=== PATIENT | male | born 1985 | race Caucasian/White ===

== ENCOUNTER 2019-04-04 04:34 | Emergency (ER) | payer OTHER ==
[2019-04-04 04:41] VITALS: RESP 18
[2019-04-04] MEDS ORDERED: MAG HYDROX/AL HYDROX/SIMETH 30 ML, HYOSCYAMINE ELIXIR 10 ML, LIDOCAINE VISCOUS 2% 10 ML PO STA ×3 (04:59)
[2019-04-04] MEDS ORDERED: ONDANSETRON 4 MG/2 ML VIAL IVP STA (04:59)
--- NOTE | 2019-04-04 04:59 | ED ---
Abdominal Pain HPI - General Chief Complaint: Abdominal Pain Stated Complaint: Abd pain Time Seen by Provider: 04/04/19 04:45 Source: patient Mode of arrival: ambulatory Limitations: no limitations - History of Present Illness Initial Comments: Arun is a 33 yo male who since the emergency room today for evaluation of epigastric right upper quadrant abdominal pain. Patient reports that presently for 5 times her past month he developed some what he considered to be indigestion type pain after eating, patient thought it may be related to eating dairy though he has no previous ALLERGY. Patient proceeded dinner around 7 PM he went to bed and awoke around midnight with stabbing epigastric right upper quadrant abdominal pain with associated nausea. Patient reports he's had 5 episodes of nonbloody nonbilious emesis which prompted him to come the ER for further evaluation. Patient does have a history of hepatitis C comings previously undergone therapy for this as a child, he has not followed up with gastroenterology or infectious disease over a year. - Related Data Home Medications Medication Instructions Recorded Confirmed Mononine 1,500 units IV DIRECTED PRN 02/07/15 02/07/15 Allergies Allergy/AdvReac Type Severity Reaction Status Date / Time aspirin AdvReac Unknown Verified 04/04/19 04:41 Review of Systems ROS Statement: Those systems with pertinent positive or pertinent negative responses have been documented in the HPI. ROS Other: All systems not noted in ROS Statement are negative. 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 Patient is nontoxic and well- hydrated and is in no distress. HENT: Normocephalic, Atraumatic. EYES: PERRL, EOMI PULMONARY: Unlabored respirations. No audible rales rhonchi or wheezing was noted. CARDIOVASCULAR: There is a regular rate and rhythm without any murmurs gallops or rubs. ABDOMEN: Mild tenderness to deep palpation in the epigastrium SKIN: Skin is clear with no lesions or rashes and otherwise unremarkable. : Deferred NEUROLOGIC: Patient is alert and oriented x3. Moving all extremities spontaneously MUSCULOSKELETAL: Normal extremities with adequate strength and full range of motion. No lower extremity swelling or edema. No calf tenderness. PSYCHIATRIC: Normal psychiatric evaluation. Limitations: no limitations Course Vital Signs 04/04/19 04:39 Temperature 97.4 F L Pulse Rate 74 Respiratory 18 Rate Blood Pressure 135/78 O2 Sat by Pulse 96 Oximetry Medical Decision Making - Medical Decision Making Patient was seen and evaluated, history obtained from patient Labs and KUB xray ordered KUB with possible enteritis, no acute findings Labs with transaminitis - US ordered, however patient is now asymptomatic resting comfortably and would prefer to be discharged home at this time. This with the patient he needs follow-up with his primary care physician, that if he starts noticing abdominal discomfort after eating fatty foods he needs to avoid them and follow-up with a surgeon for evaluation of possible gallbladder dysfunction. All questions pertaining care were answered return parameters were discussed the patient was discharged home in stable condition - Lab Data Result diagrams: 04/04/19 05:10 04/04/19 05:10 Lab Results 04/04/19 04/04/19 04/04/19 Range/Units 05:10 05:10 05:30 WBC 5.9 (3.8-10.6) k/uL RBC 4.80 (4.30-5.90) m/uL Hgb 16.3 (13.0-17.5) gm/dL Hct 45.2 (39.0-53.0) % MCV 94.2 (80.0-100.0) fL MCH 33.9 (25.0-35.0) pg MCHC 35.9 (31.0-37.0) g/dL RDW 12.9 (11.5-15.5) % Plt Count 109 L (150-450) k/uL Neutrophils % 67 % Lymphocytes % 22 % Monocytes % 6 % Eosinophils % 2 % Basophils % 1 % Neutrophils # 4.0 (1.3-7.7) k/uL Lymphocytes # 1.3 (1.0-4.8) k/uL Monocytes # 0.4 (0-1.0) k/uL Eosinophils # 0.1 (0-0.7) k/uL Basophils # 0.1 (0-0.2) k/uL Sodium 140 (137-145) mmol/L Potassium 3.6 (3.5-5.1) mmol/L Chloride 107 (98-107) mmol/L Carbon Dioxide 24 (22-30) mmol/L Anion Gap 9 mmol/L BUN 14 (9-20) mg/dL Creatinine 0.71 (0.66-1.25) mg/dL Est GFR (CKD-EPI)AfAm >90 (>60 ml/min/1.73 sqM) Est GFR (CKD-EPI)NonAf >90 (>60 ml/min/1.73 sqM) Glucose 118 H (74-99) mg/dL Calcium 9.4 (8.4-10.2) mg/dL Total Bilirubin 1.0 (0.2-1.3) mg/dL AST 96 H (17-59) U/L ALT 90 H (21-72) U/L Alkaline Phosphatase 176 H (38-126) U/L Total Protein 8.0 (6.3-8.2) g/dL Albumin 4.1 (3.5-5.0) g/dL Lipase 112 (23-300) U/L Urine Color Yellow Urine Appearance Clear (Clear) Urine pH 7.0 (5.0-8.0) Ur Specific [place] 1.020 (1.001-1.035) Urine Protein Trace H (Negative) Urine Glucose (UA) Negative (Negative) Urine Ketones Negative (Negative) Urine Blood Small H (Negative) Urine Nitrite Negative (Negative) Urine Bilirubin Negative (Negative) Urine Urobilinogen 2.0 (<2.0) mg/dL Ur Leukocyte Esterase Negative (Negative) Urine RBC 36 H (0-5) /hpf Urine WBC 3 (0-5) /hpf Calcium Oxalate Crystal Occasional H (None) /hpf Urine Bacteria Rare H (None) /hpf Urine Mucus Rare H (None) /hpf Disposition Clinical Impression: Abdominal pain Disposition: HOME SELF-CARE Condition: Stable Instructions (If sedation given, give patient instructions): Abdominal Pain (ED) Is patient prescribed a controlled substance at d/c from ED?: No Referrals: None,Stated [Primary Care Provider] - 1-2 days
--- NOTE | 2019-04-04 05:46 | XR ---
EXAM: XR Abdomen, 2 Views CLINICAL HISTORY: abdominal pain TECHNIQUE: Frontal upright views of the abdomen/pelvis. COMPARISON: No relevant prior studies available. FINDINGS: Lower thorax: There is a 0.8 cm nodule overlying the left lower lung zone. While this may represent a nipple shadow, it is asymmetric. Gastrointestinal tract: Wall thickening of small bowel loops likely present raising concern for infectious versus inflammatory enteritis. No dilation. Organs: Bilateral subcentimeter nephrolithiasis. 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 IMPRESSION: 1. A 0.8 cm nodule overlying the left lower lung zone. While this may represent a nipple shadow, it is asymmetric. PA and lateral views of the chest recommended for further evaluation. 2. Wall thickening of small bowel loops likely present raising concern for infectious versus inflammatory enteritis. 3. Bilateral subcentimeter nephrolithiasis. Renal stone protocol CT may be obtained for further evaluation, if clinically indicated.
[2019-04-04 05:50] LABS: Basophils # (A) 0.1 k/uL (0-0.2); Basophils % (A) 1 %; Eosinophils # (A) 0.1 k/uL (0-0.7); Eosinophils % (A) 2 %; HCT 45.2 % (39.0-53.0); HGB 16.3 gm/dL (13.0-17.5); Lymphocytes # (A) 1.3 k/uL (1.0-4.8); Lymphocytes % (A) 22 %; MCH 33.9 pg (25.0-35.0); MCHC 35.9 g/dL (31.0-37.0); MCV 94.2 fL (80.0-100.0); Monocytes # (A) 0.4 k/uL (0-1.0); Monocytes % (A) 6 %; Neutrophils % (A) 67 %; Platelet Count 109 k/uL (150-450); RDW 12.9 % (11.5-15.5); WBC 5.9 k/uL (3.8-10.6)
[2019-04-04 06:04] LABS: ALT 90 U/L (21-72); AST 96 U/L (17-59); African American GFR (CKD) >90 (>60 ml/min/1.73 sqM); Albumin 4.1 g/dL (3.5-5.0); Alkaline Phosphatase 176 U/L (38-126); Anion Gap 9 mmol/L; Blood Urea Nitrogen 14 mg/dL (9-20); Calcium 9.4 mg/dL (8.4-10.2); Carbon Dioxide 24 mmol/L (22-30); Chloride 107 mmol/L (98-107); Glucose 118 mg/dL (74-99); Non-African American GFR(CKD) >90 (>60 ml/min/1.73 sqM); Potassium 3.6 mmol/L (3.5-5.1); Sodium 140 mmol/L (137-145)
[2019-04-04 06:15] LABS: Appearance,Urine Clear (Clear); Bacteria,Urine Rare /hpf; Bilirubin,Urine Negative (Negative); Blood,Urine Small (Negative); Calcium Oxalate Crystals,Urine Occasional /hpf; Color,Urine Yellow; Glucose,Urine (UA) Negative (Negative); Ketones,Urine Negative (Negative); Leukocyte Esterase,Urine Negative (Negative); Mucus,Urine Rare /hpf; Nitrite,Urine Negative (Negative); Protein,Urine Trace (Negative); RBC,Urine 36 /hpf (0-5); WBC,Urine 3 /hpf (0-5)
[2019-04-04 06:48] VITALS: BP 118/73; PULSE 60; TEMP 97.9
== END 2019-04-04 06:45 | disposition home or self-care (01) ==
LOC: EC 04:34
DX: R10.11 Right upper quadrant pain (principal); R10.13 Epigastric pain; R74.0 Nonspecific elevation of levels of transaminase and lactic acid dehydrogenase [LDH]; R11.2 Nausea with vomiting, unspecified; Z87.891 Personal history of nicotine dependence; Z88.6 Allergy status to analgesic agent
CPT/HCPCS: 36415; 80053; 83690; 85025; 81001; 74018; 99284; 96374; J2405

== ENCOUNTER 2020-05-10 15:52 | Emergency (ER) | payer OTHER ==
[2020-05-10 15:58] VITALS: RESP 18
[2020-05-10] MEDS ORDERED: SODIUM CHLORIDE 0.9% 1,000 ML IV STA ×2 (16:20)
--- NOTE | 2020-05-10 16:24 | ED ---
Abdominal Pain HPI - General Chief Complaint: Abdominal Pain Stated Complaint: Blood in urine Time Seen by Provider: 05/10/20 16:00 Source: patient, RN notes reviewed, old records reviewed Mode of arrival: ambulatory Limitations: no limitations - History of Present Illness Initial Comments: Patient is a 34-year-old male with a history of hemophilia and hepatitis C who presents restaurant today with complaints of bloody stool today. He reports and had a bowel movement was. Blood. He reports abdominal bloating but denies specific pain. He denies any changes in urination, despite the triage note. He states that he has no flank or back pain. - Related Data Home Medications Medication Instructions Recorded Confirmed Mononine 1,500 units IV DIRECTED PRN 02/07/15 02/07/15 Previous Rx's Medication Instructions Recorded Ciprofloxacin HCl [Cipro] 500 mg PO Q12H 3 Days #6 tab 05/10/20 Allergies Allergy/AdvReac Type Severity Reaction Status Date / Time aspirin AdvReac Unknown Verified 04/04/19 04:41 Review of Systems ROS Statement: Those systems with pertinent positive or pertinent negative responses have been documented in the HPI. ROS Other: All systems not noted in ROS Statement are negative. 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 No distress. Limitations: no limitations General appearance: alert, in no apparent distress Head exam: Present: atraumatic, normocephalic, normal inspection Eye exam: Present: normal appearance, PERRL, EOMI. Absent: scleral icterus, conjunctival injection, periorbital swelling ENT exam: Present: normal exam, mucous membranes moist Neck exam: Present: normal inspection Respiratory exam: Present: normal lung sounds bilaterally. Absent: respiratory distress, wheezes, rales, rhonchi, stridor Cardiovascular Exam: Present: regular rate GI/Abdominal exam: Present: soft, normal bowel sounds. Absent: distended, tenderness, guarding, rebound, rigid Rectal exam: Present: normal rectal tone, heme (+) stool. Absent: bloody stool, hemorrhoids Extremities exam: Present: normal inspection, full ROM, normal capillary refill. Absent: tenderness, pedal edema, joint swelling, calf tenderness Back exam: Present: normal inspection Neurological exam: Present: alert, oriented X3, CN II-XII intact Psychiatric exam: Present: normal affect Skin exam: Present: warm, dry, intact, normal color. Absent: rash Course Vital Signs 05/10/20 05/10/20 05/10/20 15:55 16:58 18:57 Temperature 97.9 F Pulse Rate 97 72 71 Respiratory 18 18 18 Rate Blood Pressure 139/94 124/65 124/68 O2 Sat by Pulse 99 99 97 Oximetry 05/10/20 19:15 Temperature 98.3 F Pulse Rate Respiratory Rate Blood Pressure O2 Sat by Pulse Oximetry Medical Decision Making - Medical Decision Making 34 year old male with rectal bleeding today. PT has history of hemophilia. At this time he has no abdominal tenderness. Labs were reviewed and normal. Pt fecal occult is positive. Pt has no obvious hemorrhoid. CT scan shows diverticulosis, no colitis or diverticulitis. Discussed treatment for bloody diarreha with cipro for 3 days. Discussed return parameters, PCP and GI follow up. Disucssed diet changes. - Lab Data Result diagrams: 05/10/20 16:42 05/10/20 16:42 Lab Results 05/10/20 05/10/20 05/10/20 Range/Units 16:42 16:42 16:42 WBC 6.2 (3.8-10.6) k/uL RBC 4.75 (4.30-5.90) m/uL Hgb 15.9 (13.0-17.5) gm/dL Hct 46.1 (39.0-53.0) % MCV 97.0 (80.0-100.0) fL MCH 33.5 (25.0-35.0) pg MCHC 34.5 (31.0-37.0) g/dL RDW 13.1 (11.5-15.5) % Plt Count 107 L (150-450) k/uL MPV 7.0 Neutrophils % 57 % Lymphocytes % 28 % Monocytes % 10 % Eosinophils % 3 % Basophils % 1 % Neutrophils # 3.5 (1.3-7.7) k/uL Lymphocytes # 1.7 (1.0-4.8) k/uL Monocytes # 0.6 (0-1.0) k/uL Eosinophils # 0.2 (0-0.7) k/uL Basophils # 0.1 (0-0.2) k/uL Manual Slide Review Performed PT 12.0 (9.0-12.0) sec INR 1.2 H (<1.2) APTT 36.5 H (22.0-30.0) sec Sodium (137-145) mmol/L Potassium (3.5-5.1) mmol/L Chloride (98-107) mmol/L Carbon Dioxide (22-30) mmol/L Anion Gap mmol/L BUN (9-20) mg/dL Creatinine (0.66-1.25) mg/dL Est GFR (CKD-EPI)AfAm (>60 ml/min/1.73 sqM) Est GFR (CKD-EPI)NonAf (>60 ml/min/1.73 sqM) Glucose (74-99) mg/dL Plasma Lactic Acid Jalil (0.7-2.0) mmol/L Calcium (8.4-10.2) mg/dL Total Bilirubin (0.2-1.3) mg/dL AST (17-59) U/L ALT (4-49) U/L Alkaline Phosphatase (38-126) U/L Total Protein (6.3-8.2) g/dL Albumin (3.5-5.0) g/dL Amylase (30-110) U/L Lipase (23-300) U/L Urine Color Yellow Urine Appearance Clear (Clear) Urine pH 6.0 (5.0-8.0) Ur Specific [place] 1.021 (1.001-1.035) Urine Protein Negative (Negative) Urine Glucose (UA) Negative (Negative) Urine Ketones Negative (Negative) Urine Blood Negative (Negative) Urine Nitrite Negative (Negative) Urine Bilirubin Negative (Negative) Urine Urobilinogen 4.0 (<2.0) mg/dL Ur Leukocyte Esterase Negative (Negative) Stool Occult Blood (Negative) 05/10/20 05/10/20 05/10/20 Range/Units 16:42 16:42 16:42 WBC (3.8-10.6) k/uL RBC (4.30-5.90) m/uL Hgb (13.0-17.5) gm/dL Hct (39.0-53.0) % MCV (80.0-100.0) fL MCH (25.0-35.0) pg MCHC (31.0-37.0) g/dL RDW (11.5-15.5) % Plt Count (150-450) k/uL MPV Neutrophils % % Lymphocytes % % Monocytes % % Eosinophils % % Basophils % % Neutrophils # (1.3-7.7) k/uL Lymphocytes # (1.0-4.8) k/uL Monocytes # (0-1.0) k/uL Eosinophils # (0-0.7) k/uL Basophils # (0-0.2) k/uL Manual Slide Review PT (9.0-12.0) sec INR (<1.2) APTT (22.0-30.0) sec Sodium 139 (137-145) mmol/L Potassium 3.4 L (3.5-5.1) mmol/L Chloride 107 (98-107) mmol/L Carbon Dioxide 26 (22-30) mmol/L Anion Gap 6 mmol/L BUN 14 (9-20) mg/dL Creatinine 0.74 (0.66-1.25) mg/dL Est GFR (CKD-EPI)AfAm >90 (>60 ml/min/1.73 sqM) Est GFR (CKD-EPI)NonAf >90 (>60 ml/min/1.73 sqM) Glucose 107 H (74-99) mg/dL Plasma Lactic Acid Jalil 1.1 (0.7-2.0) mmol/L Calcium 9.0 (8.4-10.2) mg/dL Total Bilirubin 1.3 (0.2-1.3) mg/dL AST 77 H (17-59) U/L ALT 63 H (4-49) U/L Alkaline Phosphatase 130 H (38-126) U/L Total Protein 7.9 (6.3-8.2) g/dL Albumin 3.9 (3.5-5.0) g/dL Amylase 81 (30-110) U/L Lipase 133 (23-300) U/L Urine Color Urine Appearance (Clear) Urine pH (5.0-8.0) Ur Specific [place] (1.001-1.035) Urine Protein (Negative) Urine Glucose (UA) (Negative) Urine Ketones (Negative) Urine Blood (Negative) Urine Nitrite (Negative) Urine Bilirubin (Negative) Urine Urobilinogen (<2.0) mg/dL Ur Leukocyte Esterase (Negative) Stool Occult Blood Positive (Negative) Disposition Clinical Impression: Bloody stool Disposition: HOME SELF-CARE Condition: Good Instructions (If sedation given, give patient instructions): Melena (ED) Additional Instructions: Please use medication as discussed. Patient advised a bland diet. Please follow up with family doctor if symptoms have not improved over the next two days. Please return to the emergency room if your symptoms increase or worsen or for any other concerns. Prescriptions: Ciprofloxacin HCl [Cipro] 500 mg PO Q12H 3 Days #6 tab Is patient prescribed a controlled substance at d/c from ED?: No Referrals: None,Stated [Primary Care Provider] - 1-2 days Mayra Teixeira MD [STAFF PHYSICIAN] - 1-2 days Benji Montiel DO [STAFF PHYSICIAN] - 1-2 days Time of Disposition: 18:56
[2020-05-10 17:11] LABS: ALT 63 U/L (4-49); AST 77 U/L (17-59); African American GFR (CKD) >90 (>60 ml/min/1.73 sqM); Albumin 3.9 g/dL (3.5-5.0); Alkaline Phosphatase 130 U/L (38-126); Amylase 81 U/L (30-110); Anion Gap 6 mmol/L; Blood Urea Nitrogen 14 mg/dL (9-20); Carbon Dioxide 26 mmol/L (22-30); Chloride 107 mmol/L (98-107); Glucose 107 mg/dL (74-99); Lipase 133 U/L (23-300); Non-African American GFR(CKD) >90 (>60 ml/min/1.73 sqM); Potassium 3.4 mmol/L (3.5-5.1); Sodium 139 mmol/L (137-145); Total Bilirubin 1.3 mg/dL (0.2-1.3); Total Protein 7.9 g/dL (6.3-8.2)
[2020-05-10 17:17] LABS: INR 1.2 (<1.2); Partial Thromboplastin Time 36.5 sec (22.0-30.0)
[2020-05-10 17:29] LABS: Basophils # (A) 0.1 k/uL (0-0.2); Basophils % (A) 1 %; Eosinophils # (A) 0.2 k/uL (0-0.7); Eosinophils % (A) 3 %; HCT 46.1 % (39.0-53.0); HGB 15.9 gm/dL (13.0-17.5); Lymphocytes # (A) 1.7 k/uL (1.0-4.8); Lymphocytes % (A) 28 %; MCH 33.5 pg (25.0-35.0); MCHC 34.5 g/dL (31.0-37.0); Monocytes # (A) 0.6 k/uL (0-1.0); Monocytes % (A) 10 %; Neutrophils # (A) 3.5 k/uL (1.3-7.7); Neutrophils % (A) 57 %; Platelet Count 107 k/uL (150-450); RBC 4.75 m/uL (4.30-5.90); RDW 13.1 % (11.5-15.5); WBC 6.2 k/uL (3.8-10.6)
[2020-05-10 17:34] LABS: Appearance,Urine Clear (Clear); Bilirubin,Urine Negative (Negative); Blood,Urine Negative (Negative); Color,Urine Yellow; Glucose,Urine (UA) Negative (Negative); Ketones,Urine Negative (Negative); Leukocyte Esterase,Urine Negative (Negative); Nitrite,Urine Negative (Negative); Protein,Urine Negative (Negative); Specific Gravity,Urine 1.021 (1.001-1.035)
--- NOTE | 2020-05-10 17:56 | CT ---
EXAMINATION TYPE: CT abdomen pelvis w con DATE OF EXAM: 05/10/2020 COMPARISON: None HISTORY: Blood in stool, history of hemophilia. CT DLP: 1222.9 mGycm Automated exposure control for dose reduction was used. CONTRAST: Performed with IV Contrast, patient injected with 100ml mL of Isovue 300. Lung bases are clear of consolidation. There is no pleural effusion. There is 1 cm calcified granulom a in the left lower lobe. Heart size is normal. There is no pericardial effusion. Liver and spleen appear normal. The bile ducts not dilated. Pancreas appears normal. There is 3 cm ca lcified gallstone. The stomach is intact. There is no adrenal mass. Kidneys show satisfactory contrast opacification. There is no hydronephrosi s. There are numerous bilateral renal calculi that measure up to 5 mm. There is no hydronephrosis. Th e ureters are not dilated. Delayed images show normal renal excretion. Appendix is posterior and appe ars normal. Bladder distends smoothly. There is no inguinal hernia. There is no free fluid in the pelvis. There are a few sigmoid diverticula. There is no sign of divert iculitis. Lumbar vertebra have normal alignment. Posterior elements are intact. There is no compression fractur e. Bony pelvis is intact. IMPRESSION: Multiple nonobstructing bilateral renal calculi. Normal appendix. Mild colonic diverticulosis without diverticulitis. Cholelithiasis.
[2020-05-10 18:58] VITALS: BP 124/68; PULSE 71
[2020-05-10 19:28] VITALS: TEMP 98.3
== END 2020-05-10 19:15 | disposition home or self-care (01) ==
LOC: EC 15:52
DX: K92.1 Melena (principal); R14.0 Abdominal distension (gaseous); D66 Hereditary factor VIII deficiency; B19.20 Unspecified viral hepatitis C without hepatic coma; Z87.891 Personal history of nicotine dependence; Z88.6 Allergy status to analgesic agent
CPT/HCPCS: 36415; 80053; 82150; 83605; 83690; 85025; 85610; 85730; 82272; 81003; 74177; 99284; 96361 ×2; 96360; Q9967

== ENCOUNTER → 2020-05-12 | Outpatient (CLI) | payer OTHER ==
[2020-05-12 13:13] LABS: Basophils # (A) 0.1 k/uL (0-0.2); Basophils % (A) 1 %; Eosinophils # (A) 0.2 k/uL (0-0.7); Eosinophils % (A) 4 %; HCT 42.5 % (39.0-53.0); HGB 15.1 gm/dL (13.0-17.5); Lymphocytes # (A) 2.2 k/uL (1.0-4.8); Lymphocytes % (A) 35 %; MCH 34.1 pg (25.0-35.0); MCHC 35.6 g/dL (31.0-37.0); MCV 95.8 fL (80.0-100.0); Mean Platelet Volume 6.6; Monocytes # (A) 0.5 k/uL (0-1.0); Monocytes % (A) 8 %; Neutrophils # (A) 3.1 k/uL (1.3-7.7); Neutrophils % (A) 50 %; Platelet Count 114 k/uL (150-450); RBC 4.43 m/uL (4.30-5.90); RDW 12.3 % (11.5-15.5); WBC 6.1 k/uL (3.8-10.6)
== END | disposition home or self-care (01) ==
LOC: LABWHC1 12:06
PROVIDERS: ATTEND Internal Medicine
DX: D67 Hereditary factor IX deficiency (principal)
CPT/HCPCS: 36415; 85025

== ENCOUNTER 2022-04-11 00:28 | Emergency (ER) | payer OTHER ==
[2022-04-11 00:32] VITALS: TEMP 97.9
[2022-04-11] MEDS ORDERED: SODIUM CHLORIDE 0.9% 1,000 ML IV STA (00:36)
[2022-04-11] MEDS ORDERED: PANTOPRAZOLE 40 MG/10 ML VIAL IVP STA (00:36)
[2022-04-11] MEDS ORDERED: ONDANSETRON 4 MG/2 ML VIAL IVP STA (00:36)
--- NOTE | 2022-04-11 00:38 | ED ---
Abdominal Pain HPI - General Chief Complaint: Abdominal Pain Stated Complaint: Abdominal Pain Time Seen by Provider: 04/11/22 00:35 Source: patient, family, RN notes reviewed, old records reviewed Mode of arrival: ambulatory Limitations: no limitations - History of Present Illness Initial Comments: This is a 36-year-old male to the emergency department for evaluation. Patient has complex medical history hepatitis and hemophilia. Patient coming in with significant epigastric right upper quadrant pain positive nausea positive vomiting. Afebrile, pain worse with eating tonight. Patient has history of gallbladder attacks but chose not to have gallbladder removal secondary to hemophilia MD Complaint: abdominal pain -: days(s) (2) Location: diffuse, periumbilical Radiation: epigastric Migration to: epigastric Severity: moderate Severity scale (1-10): 7 Quality: cramping, stabbing, aching Consistency: intermittent Worsens With: nothing Associated Symptoms: nausea, vomiting Treatments Prior to Arrival: other (0) - Related Data Home Medications Medication Instructions Recorded Confirmed Mononine 1,500 units IV DIRECTED PRN 02/07/15 02/07/15 Previous Rx's Medication Instructions Recorded Ciprofloxacin HCl [Cipro] 500 mg PO Q12H 3 Days #6 tab 05/10/20 Allergies Allergy/AdvReac Type Severity Reaction Status Date / Time aspirin AdvReac Unknown Verified 04/11/22 00:32 Review of Systems ROS Statement: Those systems with pertinent positive or pertinent negative responses have been documented in the HPI. ROS Other: All systems not noted in ROS Statement are negative. 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 Absent: scleral icterus, conjunctival injection, periorbital swelling ENT exam: Present: normal exam, mucous membranes moist Neck exam: Present: normal inspection. Absent: tenderness, meningismus, lymphadenopathy Respiratory exam: Present: normal lung sounds bilaterally. Absent: respiratory distress, wheezes, rales, rhonchi, stridor Cardiovascular Exam: Present: regular rate, normal rhythm, normal heart sounds. Absent: systolic murmur, diastolic murmur, rubs, gallop, clicks GI/Abdominal exam: Present: soft, normal bowel sounds. Absent: distended, tenderness, guarding, rebound, rigid Extremities exam: Present: normal inspection, full ROM, normal capillary refill. Absent: tenderness, pedal edema, joint swelling, calf tenderness Back exam: Present: normal inspection Neurological exam: Present: alert, oriented X3, CN II-XII intact Psychiatric exam: Present: normal affect, normal mood Skin exam: Present: warm, dry, intact, normal color. Absent: rash Course Vital Signs 04/11/22 04/11/22 04/11/22 00:30 02:00 02:30 Temperature 97.9 F Pulse Rate 83 66 73 Respiratory 18 17 18 Rate Blood Pressure 137/79 109/77 124/83 O2 Sat by Pulse 97 97 99 Oximetry - Reevaluation(s) Reevaluation #1: 04/11/22 03:23 Medical records reviewed Reevaluation #2: 04/11/22 03:24 Patient informed results and questions answered Reevaluation #3: 04/11/22 03:24 Patient has adequate pain control - Consultations Consultation #1: Spoke with Amanda garcia for admission Medical Decision Making - Medical Decision Making 36 male to the emergency department for evaluation of severe abdominal pain. Patient has gallstone stuck in, bile duct with acute cholecystitis. Patient place on antibiotics pain control and will be transferred for further definitive treatment as we do not have GI physician available - Lab Data Result diagrams: 04/11/22 00:50 04/11/22 00:50 Lab Results 04/11/22 04/11/22 04/11/22 Range/Units 00:50 00:50 00:50 WBC 6.6 (3.8-10.6) k/uL RBC 4.76 (4.30-5.90) m/uL Hgb 15.8 (13.0-17.5) gm/dL Hct 43.7 (39.0-53.0) % MCV 91.8 (80.0-100.0) fL MCH 33.3 (25.0-35.0) pg MCHC 36.3 (31.0-37.0) g/dL RDW 12.9 (11.5-15.5) % Plt Count 100 L (150-450) k/uL MPV 7.9 Neutrophils % 59 % Lymphocytes % 28 % Monocytes % 7 % Eosinophils % 4 % Basophils % 1 % Neutrophils # 3.9 (1.3-7.7) k/uL Lymphocytes # 1.8 (1.0-4.8) k/uL Monocytes # 0.5 (0-1.0) k/uL Eosinophils # 0.2 (0-0.7) k/uL Basophils # 0.1 (0-0.2) k/uL Sodium 137 (137-145) mmol/L Potassium 3.5 (3.5-5.1) mmol/L Chloride 107 (98-107) mmol/L Carbon Dioxide 22 (22-30) mmol/L Anion Gap 8 mmol/L BUN 13 (9-20) mg/dL Creatinine 0.74 (0.66-1.25) mg/dL Est GFR (CKD-EPI)AfAm >90 (>60 ml/min/1.73 sqM) Est GFR (CKD-EPI)NonAf >90 (>60 ml/min/1.73 sqM) Glucose 143 H (74-99) mg/dL Plasma Lactic Acid [place]al[place] 1.1 (0.7-2.0) mmol/L Calcium 9.2 (8.4-10.2) mg/dL Phosphorus 2.1 L (2.5-4.5) mg/dL Magnesium 1.6 (1.6-2.3) mg/dL Total Bilirubin 1.2 (0.2-1.3) mg/dL AST 96 H (17-59) U/L ALT 73 H (4-49) U/L Alkaline Phosphatase 192 H (38-126) U/L Ammonia 18 (<30) umol/L Total Protein 8.0 (6.3-8.2) g/dL Albumin 4.2 (3.5-5.0) g/dL Amylase 79 (30-110) U/L Lipase 147 (23-300) U/L - Radiology Data Radiology results: report reviewed (US shows cholecystitis, gallstone in CBD), image reviewed Disposition Clinical Impression: Abdominal pain, Abdominal colic, Acute cholecystitis, Common bile duct calculus, Hemophilia Disposition: OTHER INSTITUTION NOT DEFINED Condition: Good Is patient prescribed a controlled substance at d/c from ED?: No Referrals: None,Stated [Primary Care Provider] - 1-2 days Time of Disposition: 03:20 - Out of Hospital Transfer - Req. Specs Out of Hospital Transfer - Requested Specifics: Other Emergency Center ([facility])
[2022-04-11 01:16] LABS: Lactic Acid, Venous 1.1 mmol/L (0.7-2.0)
[2022-04-11 01:22] LABS: Potassium 3.5 mmol/L (3.5-5.1)
[2022-04-11 01:23] LABS: ALT 73 U/L (4-49); AST 96 U/L (17-59); African American GFR (CKD) >90 (>60 ml/min/1.73 sqM); Albumin 4.2 g/dL (3.5-5.0); Alkaline Phosphatase 192 U/L (38-126); Amylase 79 U/L (30-110); Anion Gap 8 mmol/L; Blood Urea Nitrogen 13 mg/dL (9-20); Calcium 9.2 mg/dL (8.4-10.2); Carbon Dioxide 22 mmol/L (22-30); Chloride 107 mmol/L (98-107); Glucose 143 mg/dL (74-99); Lipase 147 U/L (23-300); Magnesium 1.6 mg/dL (1.6-2.3); Non-African American GFR(CKD) >90 (>60 ml/min/1.73 sqM); Phosphorus 2.1 mg/dL (2.5-4.5); Sodium 137 mmol/L (137-145); Total Bilirubin 1.2 mg/dL (0.2-1.3)
[2022-04-11 01:28] LABS: Basophils # (A) 0.1 k/uL (0-0.2); Basophils % (A) 1 %; Eosinophils # (A) 0.2 k/uL (0-0.7); Eosinophils % (A) 4 %; HCT 43.7 % (39.0-53.0); HGB 15.8 gm/dL (13.0-17.5); Lymphocytes # (A) 1.8 k/uL (1.0-4.8); Lymphocytes % (A) 28 %; MCH 33.3 pg (25.0-35.0); MCHC 36.3 g/dL (31.0-37.0); MCV 91.8 fL (80.0-100.0); Mean Platelet Volume 7.9; Monocytes # (A) 0.5 k/uL (0-1.0); Monocytes % (A) 7 %; Neutrophils # (A) 3.9 k/uL (1.3-7.7); Neutrophils % (A) 59 %; Platelet Count 100 k/uL (150-450); RBC 4.76 m/uL (4.30-5.90); RDW 12.9 % (11.5-15.5); WBC 6.6 k/uL (3.8-10.6)
[2022-04-11] MEDS ORDERED: MORPHINE SULFATE 4 MG/ML SYRINGE IVP STA (01:28)
--- NOTE | 2022-04-11 02:08 | CT ---
EXAMINATION TYPE: CT abdomen pelvis wo con DATE OF EXAM: 04/11/2022 COMPARISON: 05/10/2020 HISTORY: Abdominal pain and vomitting x [address] DLP: 841.3 mGycm Automated exposure control for dose reduction was used. Images obtained from the diaphragm to the floor the pelvis with no contrast. Lung bases are clear. No pleural effusion. Liver spleen stomach pancreas appear intact. The bile duct s are nondilated. There is single 3 cm calcified gallstone. Gallbladder is dilated and measures 5.5 c m in diameter. Gallstones at the gallbladder neck. There is no adrenal mass. Kidneys have normal size and contour. No hydronephrosis. There are bilatera l multiple small renal calculi up to 5 mm. No retroperitoneal adenopathy. Ureters are nondilated. Ryan dder distends smoothly. There is small left-sided fat-containing inguinal hernia no evidence of a pel shayne mass. No free fluid in the pelvis. Appendix is posterior and appears normal. There is no mesenter ic edema. No ascites or free air. No sign of a bowel obstruction. The lumbar vertebrae have normal alignment. No compression fracture. Bony pelvis is intact. The hip j oints are intact. IMPRESSION: Multiple bilateral nonobstructing renal calculi. Calculi similar to old exam. Dilated gallbladder with large gallstone at the gallbladder neck. I suspect cholecystitis. Dilation i s new compared to old exam.
[2022-04-11] MEDS ORDERED: KETOROLAC 15 MG/ML 1 ML VIAL IVP STA (02:16)
[2022-04-11] MEDS ORDERED: AMPICILLIN-SULBACTAM 3 GM in SODIUM CHLORIDE 0.9% 100 ML IVPB STA (02:16)
[2022-04-11 04:18] VITALS: BP 147/76; PULSE 75; RESP 16
== END 2022-04-11 04:23 | disposition other institution (70) ==
LOC: EC 00:28
DX: K80.42 Calculus of bile duct with acute cholecystitis without obstruction (principal); D66 Hereditary factor VIII deficiency; Z87.891 Personal history of nicotine dependence; Z88.0 Allergy status to penicillin
CPT/HCPCS: 36415; 80053; 82140; 82150; 83605; 83690; 83735; 84100; 85025; 74176; 99285; 96365; 96375 ×3; 96361; J2270; J2405; J0295; C9113

== ENCOUNTER → 2022-10-26 | Outpatient (CLI) | payer OTHER ==
[2022-10-26 15:51] LABS: African American GFR (CKD) 114.2 (60.0-200.0); Albumin 3.9 g/dL (3.8-4.9); Albumin/Globulin Ratio 0.99 (1.60-3.17); Anion Gap 10.5 mmol/L (10.00-18.00); BUN/Creat Ratio 11.71 Ratio (12.00-20.00); Blood Urea Nitrogen 11.5 mg/dL (9.0-27.0); Calcium 9.7 mg/dL (8.7-10.3); Carbon Dioxide 25.7 mmol/L (20.0-27.5); Non-African American GFR(CKD) 98.5 (60.0-200.0); Potassium 4.5 mmol/L (3.5-5.5); Total Bilirubin 1.4 mg/dL (0.30-1.20); Total Protein 7.9 g/dL (6.2-8.2)
[2022-10-26 16:40] LABS: HCT 46.5 % (39.6-50.0); MCH 32.7 pg (27.0-32.0); MCHC 34.4 g/dL (32.0-37.0); MCV 95.1 fL (80.0-97.0); Mean Platelet Volume 10.3 fL (9.5-12.2); NRBC Per 100 WBC 0 /100 WBCS (0.0-0.0); Platelet Count 116 X 10*3/uL (140-440); RBC 4.89 X 10*6/uL (4.40-5.60); RDW 12.9 % (11.5-14.5); WBC 5.95 X 10*3/uL (4.50-10.00)
== END | disposition home or self-care (01) ==
LOC: LABWHC1 10:50
PROVIDERS: ATTEND Physician Assistant
DX: K81.0 Acute cholecystitis (principal)
CPT/HCPCS: 36415; 80053; 85027

== ENCOUNTER → 2023-05-06 | Outpatient (CLI) | payer OTHER ==
[2023-05-06 23:04] LABS: Albumin 4.1 g/dL (3.8-4.9); Bilirubin, Conjugated 0.36 mg/dL (0.20-0.40); Bilirubin,Unconjugated 0.74 mg/dL (0.20-1.00); Globulin 4.1 g/dL (1.6-3.3); Total Bilirubin 1.1 mg/dL (0.3-1.2); Total Protein 8.2 g/dL (6.2-8.2)
== END | disposition home or self-care (01) ==
LOC: LABWHC1 10:02
PROVIDERS: ATTEND Physician Assistant
DX: Z12.9 Encounter for screening for malignant neoplasm, site unspecified (principal); B18.2 Chronic viral hepatitis C; Z79.899 Other long term (current) drug therapy
CPT/HCPCS: 36415; 80076; 82105; 87522

== ENCOUNTER → 2023-07-14 | Outpatient (CLI) | payer OTHER ==
[2023-07-14 18:36] LABS: HCT 43.7 % (39.6-50.0); MCH 31.3 pg (27.0-32.0); MCHC 34.3 g/dL (32.0-37.0); Mean Platelet Volume 10.1 FL (9.5-12.2); NRBC Per 100 WBC 0 X 10*3/uL (0.00-0.01); Platelet Count 117 X 10*3/uL (140-440); RDW 13.3 % (11.5-14.5); WBC 7.53 X 10*3/uL (4.50-10.00)
[2023-07-14 19:02] LABS: Albumin 4.3 g/dL (3.8-4.9); Albumin/Globulin Ratio 1.08 Ratio (1.60-3.17); Bilirubin, Conjugated 0.37 mg/dL (0.20-0.40); Bilirubin,Unconjugated 0.83 mg/dL (0.20-1.00); Total Bilirubin 1.2 mg/dL (0.3-1.2); Total Protein 8.3 g/dL (6.2-8.2)
== END | disposition home or self-care (01) ==
LOC: LABWHC1 12:25
PROVIDERS: ATTEND Physician Assistant
DX: Z12.9 Encounter for screening for malignant neoplasm, site unspecified (principal); B18.2 Chronic viral hepatitis C; K74.69 Other cirrhosis of liver; Z79.899 Other long term (current) drug therapy
CPT/HCPCS: 36415; 80076; 82105; 85027; 87522

== ENCOUNTER → 2023-09-18 | Outpatient (CLI) | payer OTHER ==
--- NOTE | 2023-09-18 09:33 | US ---
EXAMINATION TYPE: US liver DATE OF EXAM: 09/18/2023 COMPARISON: NONE CLINICAL INDICATION: Male, 37 years old with history of K74.60 UNSPECIFIED CIRRHOSIS OF LIVER B18.2 R 79.89; Elevated liver enzymes. Hepatitis with cirrhosis. Cholecystectomy TECHNIQUE: Multiple sonographic images of the right upper quadrant are obtained. FINDINGS: EXAM MEASUREMENTS: Liver Length: 16.2 cm Gallbladder Wall: Surgically absent CBD: 0.5 cm Right Kidney: 11.2 x 4.7 x 4.8 cm [employer] NOTES: *Limitations due to overlying bowel gas Pancreas: Obscured by bowel gas Liver: Coarsening of echotexture to liver. There is rather smooth capsule to the liver. Gallbladder: Surgically absent Evidence for sonographic Carney's sign: no CBD: limited evaluation, appears wnl Right Kidney: stone lower pole = 0.9 cm IMPRESSION: 1. No evidence for acute process. 2. Coarsened echotexture to the liver correlate for hepatocellular disease. 3. Nonobstructing right renal calculus.
== END | disposition home or self-care (01) ==
LOC: RADUSWWP 07:22
PROVIDERS: ATTEND Internal Medicine
DX: K74.60 Unspecified cirrhosis of liver (principal); B18.2 Chronic viral hepatitis C; R79.89 Other specified abnormal findings of blood chemistry; N20.0 Calculus of kidney
CPT/HCPCS: 76705

== ENCOUNTER → 2023-09-23 | Outpatient (CLI) | payer OTHER ==
[2023-09-23 14:24] LABS: HCT 44.7 % (39.6-50.0); HGB 15.5 g/dL (13.0-17.0); MCH 30.5 pg (27.0-32.0); MCHC 34.7 g/dL (32.0-37.0); MCV 87.8 FL (80.0-97.0); Mean Platelet Volume 9.8 FL (9.5-12.2); NRBC Per 100 WBC 0 X 10*3/uL (0.00-0.01); Platelet Count 128 X 10*3/uL (140-440); RBC 5.09 X 10*6/uL (4.40-5.60); RDW 13.2 % (11.5-14.5); WBC 8.37 X 10*3/uL (4.50-10.00)
[2023-09-23 14:44] LABS: Albumin 4.3 g/dL (3.8-4.9); Albumin/Globulin Ratio 1.08 Ratio (1.60-3.17); Bilirubin, Conjugated 0.41 mg/dL (0.20-0.40); Bilirubin,Unconjugated 0.89 mg/dL (0.20-1.00); Total Bilirubin 1.3 mg/dL (0.3-1.2); Total Protein 8.3 g/dL (6.2-8.2)
== END | disposition home or self-care (01) ==
LOC: LABWHC1 10:09
DX: K74.69 Other cirrhosis of liver (principal); B18.2 Chronic viral hepatitis C
CPT/HCPCS: 36415; 80076; 85027; 87522

== ENCOUNTER → 2024-03-23 | Outpatient (CLI) | payer OTHER ==
[2024-03-23 13:20] LABS: HGB 14.6 g/dL (13.0-17.0); MCH 29.1 pg (27.0-32.0); MCHC 33.2 g/dL (32.0-37.0); MCV 87.8 FL (80.0-97.0); NRBC Per 100 WBC 0 X 10*3/uL (0.00-0.01); Platelet Count 131 X 10*3/uL (140-440); RBC 5.01 X 10*6/uL (4.40-5.60); RDW 14.3 % (11.5-14.5); WBC 7.19 X 10*3/uL (4.50-10.00)
[2024-03-23 15:04] LABS: INR 1.18 sec (0.93-1.11); Prothrombin Time 12.6 sec (9.9-11.9)
[2024-03-24 08:11] LABS: ALT 33 U/L (10-49); AST 37 U/L (14-35); Albumin 4.2 g/dL (3.8-4.9); Albumin/Globulin Ratio 1.11 Ratio (1.60-3.17); Alkaline Phosphatase 141 U/L (41-126); Bilirubin, Conjugated 0.35 mg/dL (0.20-0.40); Bilirubin,Unconjugated 0.65 mg/dL (0.20-1.00); Blood Urea Nitrogen 20.1 mg/dL (9.0-27.0); Calcium 9.4 mg/dL (8.7-10.3); Carbon Dioxide 24.3 mmol/L (21.6-31.8); Chloride 106 mmol/L (96-109); Globulin 3.8 g/dL (1.6-3.3); Glucose 122 mg/dL (70-110); Potassium 3.8 mmol/L (3.5-5.5); Sodium 142 mmol/L (135-145)
== END | disposition home or self-care (01) ==
LOC: LABWHC1 10:09
PROVIDERS: ATTEND Physician Assistant
CPT/HCPCS: 36415; 80048; 80076; 82105; 83516; 85027; 85610